=== PATIENT | female | born 1985 | race Caucasian/White ===

== ENCOUNTER 2023-12-07 02:13 | Emergency (ER) | payer OTHER ==
[2023-12-07 02:24] VITALS: BMI 32.1
[2023-12-07 02:57] LABS: BASO % 0.4 % (0-2.0); EOS % 0.4 % (0-4.5); HEMATOCRIT 41.9 % (32.4-45.2); HEMOGLOBIN 14.6 GM/dL (10.7-15.3); LYMPH % 21.7 % (8-40); MCH 31.3 pg (25.7-33.7); MCHC 34.8 g/dl (32.0-36.0); MEAN CELL VOLUME 89.9 fl (80-96); MEAN PLT VOLUME 8.5 fl (7.5-11.1); NEUT % 73.5 % (42.8-82.8); PLATELET COUNT 219 10^3/uL (134-434); RBC 4.66 M/mm3 (3.60-5.2); RDW 12.8 % (11.6-15.6); WHITE BLOOD COUNT 6.4 K/mm3 (4.0-10.0)
[2023-12-07 03:00] LABS: PH,URINE 5.5 (5.0-8.0); URINE APPEARANCE CLEAR; URINE BILIRUBIN NEGATIVE (NEGATIVE); URINE COLOR YELLOW; URINE GLUCOSE (UA) NEGATIVE (NEGATIVE); URINE KETONE NEGATIVE (NEGATIVE); URINE LEUK ESTERASE TRACE (NEGATIVE); URINE NITRITE NEGATIVE (NEGATIVE); URINE PROTEIN NEGATIVE (NEGATIVE); URINE UROBILINOGEN 0.2 mg/dL (0.2-1.0)
[2023-12-07 03:28] LABS: POTASSIUM 3.9 mmol/L (3.5-5.1)
[2023-12-07 03:30] LABS: CALCIUM 9.5 mg/dL (8.5-10.1)
[2023-12-07 03:31] LABS: ALBUMIN 4.2 g/dl (3.4-5.0); BLOOD UREA NITROGEN 14.1 mg/dL (7-18)
[2023-12-07 03:33] LABS: CREATININE 0.6 mg/dL (0.55-1.3)
[2023-12-07 03:35] LABS: BILIRUBIN,TOTAL 0.3 mg/dL (0.2-1); TOT PROT 7.9 g/dl (6.4-8.2)
[2023-12-07 03:36] LABS: INR 0.97 (0.83-1.09); PROTHROMBIN TIME (PATIENT) 11.2 SEC (9.7-13.0)
[2023-12-07 03:38] LABS: ACTIVATED PTT 27.2 SECONDS (25.2-36.5)
[2023-12-07 04:53] LABS: URINE RBC 18.9 /uL (0-23.9)
[2023-12-07 04:54] LABS: EPI CELLS 38.3 /uL (0-25.1); HYALINE CASTS 5.31 /uL (0-3.1); URINE BACTERIA 8.4 /uL (0-1359); URINE WBC 269 /uL (0-25.8)
[2023-12-07 06:19] VITALS: BP 132/70; PULSE 83; RESP 14; TEMP 98.5
== END 2023-12-07 06:35 | disposition home or self-care (01) ==
LOC: JER 02:13
DX: O02.1 Missed abortion (principal)
CPT/HCPCS: 0241U-QW; 36415; 76817-TC; 80053; 81003; 84702; 85025; 85610; 85730; 86850; 86900; 86901; 99285-25

== ENCOUNTER 2023-12-11 17:34 | Emergency (ER) | payer OTHER ==
[2023-12-11 17:40] VITALS: BP 108/74; PULSE 91; RESP 18; TEMP 99; BMI 31.9
[2023-12-11] MEDS ORDERED: ONDANSETRON 4 MG/2 ML VIAL IVPUSH ONE (18:56)
[2023-12-11] MEDS ORDERED: ACETAMINOPHEN 1000 MG/100 ML BAG IVPB ONE (18:56)
[2023-12-11] MEDS ORDERED: ONDANSETRON 4 MG/2 ML VIAL ONE (19:55)
[2023-12-11] MEDS ORDERED: ACETAMINOPHEN INJECTION 100 ML IVPB ONE (19:55)
[2023-12-11] MEDS ORDERED: SODIUM CHLORIDE 1,000 ML IV STA (19:59)
[2023-12-11 20:11] LABS: BASO % 0.2 % (0-2.0); EOS % 0.1 % (0-4.5); HEMATOCRIT 33.7 % (32.4-45.2); HEMOGLOBIN 11.7 GM/dL (10.7-15.3); LYMPH % 7.4 % (8-40); MCH 31.2 pg (25.7-33.7); MCHC 34.7 g/dl (32.0-36.0); MEAN CELL VOLUME 89.8 fl (80-96); MEAN PLT VOLUME 8.8 fl (7.5-11.1); MONO % 2.5 % (3.8-10.2); NEUT % 89.8 % (42.8-82.8); PLATELET COUNT 211 10^3/uL (134-434); RBC 3.76 M/mm3 (3.60-5.2); RDW 12.3 % (11.6-15.6); WHITE BLOOD COUNT 11.5 K/mm3 (4.0-10.0)
[2023-12-11 20:37] LABS: INR 1.04 (0.83-1.09); PROTHROMBIN TIME (PATIENT) 12.1 SEC (9.7-13.0)
[2023-12-11 20:40] LABS: ACTIVATED PTT 22.4 SECONDS (25.2-36.5)
[2023-12-11 20:47] LABS: POTASSIUM 3.9 mmol/L (3.5-5.1)
[2023-12-11 20:49] LABS: CALCIUM 8.2 mg/dL (8.5-10.1)
[2023-12-11 20:50] LABS: ALBUMIN 3.4 g/dl (3.4-5.0); BLOOD UREA NITROGEN 9.8 mg/dL (7-18)
[2023-12-11 20:53] LABS: CREATININE 0.6 mg/dL (0.55-1.3)
[2023-12-11 20:54] LABS: BILIRUBIN,TOTAL 0.4 mg/dL (0.2-1); TOT PROT 6.4 g/dl (6.4-8.2)
[2023-12-11 22:08] LABS: HEMATOCRIT 29.4 % (32.4-45.2); HEMOGLOBIN 10.4 GM/dL (10.7-15.3); MCH 31.5 pg (25.7-33.7); MCHC 35.4 g/dl (32.0-36.0); MEAN CELL VOLUME 89.2 fl (80-96); MEAN PLT VOLUME 8.2 fl (7.5-11.1); PLATELET COUNT 195 10^3/uL (134-434); RDW 12.6 % (11.6-15.6); WHITE BLOOD COUNT 10.9 K/mm3 (4.0-10.0)
[2023-12-11 23:54] LABS: ANISOCYTOSIS 0; MACROCYTOSIS 0; OVALOCYTE 1+
== END 2023-12-11 23:21 | disposition home or self-care (01) ==
LOC: JER 17:34
PROC: 3E033NZ Introduction of Analgesics, Hypnotics, Sedatives into Peripheral Vein, Percutaneous Approach (ICD-10-PCS; principal; 2023-12-11)
PROC: 3E033GC Introduction of Other Therapeutic Substance into Peripheral Vein, Percutaneous Approach (ICD-10-PCS; 2023-12-11)
PROC: 3E0337Z Introduction of Electrolytic and Water Balance Substance into Peripheral Vein, Percutaneous Approach (ICD-10-PCS; 2023-12-11)
DX: O03.9 Complete or unspecified spontaneous abortion without complication (principal)
CPT/HCPCS: 36415; 76817-TC; 80053; 84702; 85025; 85610; 85730; 86850; 86900; 86901; 88305-TC; 99284-25; J0131